=== PATIENT | female | born 1955 | race Caucasian/White ===

== ENCOUNTER 2019-06-29 09:07 | Emergency (ER) | payer MEDICAID ==
[~2019-06-29] VITALS: Ht 167.6 cm; Wt 52.2 kg
[2019-06-29 09:15] VITALS: BP 129/72; Ht 167.6 cm; Wt 52.2 kg
== END 2019-06-29 09:53 | disposition home or self-care (01) ==
LOC: ED 09:07
DX: S00.03XA Contusion of scalp, initial encounter (principal); Z85.41 Personal history of malignant neoplasm of cervix uteri; W01.0XXA Fall on same level from slipping, tripping and stumbling without subsequent striking against object, initial encounter; Y93.89 Activity, other specified; Y92.89 Other specified places as the place of occurrence of the external cause; Y99.8 Other external cause status
CPT/HCPCS: 90715